=== PATIENT | female | born 1990 | race Two or more races ===

== ENCOUNTER 2017-12-16 12:27 | Emergency (ER) | payer OTHER ==
[2017-12-16 12:35] VITALS: RESP 16
--- NOTE | 2017-12-16 13:38 | EDPHY ---
H & P Time Seen by Provider: 12/16/17 13:21 HPI/ROS: CHIEF COMPLAINT: Right knee injury HISTORY OF PRESENT ILLNESS: 27-year-old female presents to the emergency department with injury to her right knee. Patient states that she tripped and fell at work and landed directly on her right knee. She denies hitting her head or losing consciousness. Denies any other trauma or injury. She complains of isolated pain to the right knee. She is unable to bear weight. ROS: Denies hitting her head or losing consciousness. Denies pain in her right ankle or hip. Past Medical/Surgical History: Negative Social History: Single Smoking Status: Never smoked Physical Exam: On examination the patient has no obvious effusion. She has a very superficial abrasion to the anterior aspect of her right knee just below the patella. She has full range of motion of her right knee. There is no obvious laxity of the ligaments. Full range of motion of the right ankle and right hip. Her gait is not tested due to pain. Constitutional: Initial Vital Signs Temperature (C) 37.0 C 12/16/17 12:34 Heart Rate 88 12/16/17 12:34 Respiratory Rate 16 12/16/17 12:34 O2 Sat (%) 99 12/16/17 12:34 O2 Delivery Mode Room Air Allergies/Adverse Reactions: No Known Allergies Allergy (Verified 12/16/17 12:34) Home Medications: Medication Instructions Recorded Hormone 07/19/16 MDM/Departure - MDM Imaging Results: Imaging Impressions Knee X-Ray 12/16/17 12:36 Impression: Normal right knee series. Imaging: I viewed and interpreted images myself Procedures: Patient was placed in straight leg knee immobilizer and examined post application in good placement with normal [employer]. ED Course/Re-evaluation: 20-year-old female presents to the emergency department with right knee injury. X-rays reveal no fractures. She was placed in a straight leg knee immobilizer and given crutches per her request. - Depart Disposition: Home, Routine, Self-Care Clinical Impression: Contusion of right knee Qualifiers: Encounter type: initial encounter Qualified Code(s): S80.01XA - Contusion of right knee, initial encounter Condition: Good Instructions: Contusion in Adults (ED) Additional Instructions: Knee immobilizer for comfort and support. Weightbear as tolerated or use crutches. Ibuprofen 600 mg every 8 hr as needed for pain. Work Related Injury: Date of Injury (if different from Date of Service): Your work restrictions, if any, last only until the next business day. Formal evaluation for work restrictions beyond one day must be arranged through your employer's workman's compensation provider. Restrictions are noted below: xReturn to limited work on your next scheduled shift. xSit down work only until cleared by occupational health Referrals: Geo Monreal MD [Medical Doctor] - As per Instructions
[2017-12-16 14:18] VITALS: BP 129/84; PULSE 75; TEMP 98.8; O2SAT 96
== END 2017-12-16 14:18 | disposition home or self-care (01) ==
DX: S80.01XA Contusion of right knee, initial encounter (principal); W01.0XXA Fall on same level from slipping, tripping and stumbling without subsequent striking against object, initial encounter; Y92.69 Other specified industrial and construction area as the place of occurrence of the external cause
CPT/HCPCS: L1830